=== PATIENT | male | born 1935 | race Caucasian/White ===

== ENCOUNTER → 2017-11-17 | Day surgery (SDC) | payer MEDICARE, BC ==
[~2017-11-17] MED LIST: ASPI-183 PO; EPIP0.3I IM; KETOROLAC TROMETHAMINE 30 MG/ML (IVP) VIAL IV PUSH ONE; LACTATED RINGER'S 1000 ML INJ 1,000 ML ONE; LOTR5CAP3 PO; MIDAZOLAM HCL 2 MG/2 ML VIAL ONE; ONDANSETRON HCL 4 MG/2 ML VIAL IV PUSH ONE; PROPOFOL 200 MG/20 ML AMP IV ONE; STERILE WATER FOR INJECTION 20 ML VIAL ONE; VYTO10TA9 PO; ceFAZolin INJ 1,000 MG VIAL ONE
--- NOTE | 2017-11-17 11:44 | TN ---
cc: Mal Fernandes MD DATE OF SURGERY: 11/17/2017 PREOPERATIVE DIAGNOSIS: Symptomatic enlarging right inguinal hernia. POSTOPERATIVE DIAGNOSES: 1. Symptomatic enlarging right inguinal hernia. 2. Indirect right inguinal hernia with cord lipoma. PROCEDURE PERFORMED: Open right inguinal hernia repair with mesh and resection of cord lipoma. SURGEON: Mal Fernandes MD ROOM CLEANER: HEATHER Bateman. ANESTHESIA: General LMA. COMPLICATIONS: None. INDICATIONS FOR PROCEDURE: Mr. Catherine is a very pleasant 82-year-old gentleman who had a symptomatic enlarging right groin hernia. He was seen and evaluated in the office and offered elective repair. Risks and benefits of repair were discussed with him and he was agreeable. DETAILS OF PROCEDURE: The patient was identified, brought to the operating room, placed supine on the operating table. After adequate general anesthesia was achieved via LMA, the right groin was prepped and draped in the standard surgical fashion. A 0.25% Marcaine was injected into the right groin. A transverse incision was made. Dissection was carried down through the subcutaneous tissue through Diamond's fascia, down to the level of the external oblique. The external oblique was then opened along the course of its fibers. Cord structures and hernia sac and cord lipoma were all identified and encircled with a Miguel drain. Using careful dissection, the cord lipoma was dissected off of the spermatic cord and then it was excised with electrocautery Bovie. It was then discarded. The hernia sac was then identified traveling with the cord structures. The hernia sac was carefully dissected off the cord structures, back to the level of the internal ring. Once we achieved the internal ring, it was reduced back toward the abdominal cavity. Attention was now directed to repair. Repair was accomplished using a piece of polypropylene mesh. Mesh was secured medially at the pubic tubercle, inferiorly along the shelving edge of the inguinal ligament and superiorly along the transversalis fascia using a 2-0 Prolene suture. A slit was cut for the cord structures and they were allowed to pass through the mesh. The internal ring was appropriately tightened with care to make sure the hernia sac was underneath the mesh. Internal ring was tested and a finger tip was allowed to enter it with the cord structures. With this repair the indirect and direct spaces were well covered by mesh. The wound was copiously irrigated with normal saline solution. Wound was injected with additional local anesthetic. Cord structures were returned to their anatomic position and the [place] drain was removed. External oblique was then closed along the course of its fibers using a 2-0 Vicryl, Diamond's fascia was closed with 3-0 Vicryl and skin was closed with a 4-0 Vicryl. The patient tolerated the procedure well, was awakened and brought to recovery in stable condition. Please note, the CLIMATE CHANGE ANALYST field administrative assistant was medically necessary due to the complexity of the procedure. She has specialized surgical skills as well as extensive knowledge of my surgical technique. Her presence expedites the surgical procedure. Mal MD PRISCILLA Douglas/DOMINGA , 11:21 AM , 11:43 AM
== END | disposition home or self-care (01) ==
LOC: ESDC 07:13
PROVIDERS: ATTEND Surgery Trauma Surgery
DX: K40.90 Unilateral inguinal hernia, without obstruction or gangrene, not specified as recurrent (principal); D17.6 Benign lipomatous neoplasm of spermatic cord
CPT/HCPCS: 00830; 49505; C1781; J0690; J1885; J2250; J2405; J3010; J7120